=== PATIENT | male | born 1995 | race Caucasian/White ===

== ENCOUNTER 2019-03-31 10:19 | Day surgery (SDC) | payer OTHER, BC ==
[2019-03-31] MEDS ORDERED: PROPOFOL 20 ML ×2 (11:10→11:33)
== END 2019-03-31 12:37 | disposition home or self-care (01) ==
LOC: GIL 10:19
DX: R19.4 Change in bowel habit (principal); K64.8 Other hemorrhoids
CPT/HCPCS: 45378